=== PATIENT | female | born 1995 | race Caucasian/White ===

== ENCOUNTER 2016-07-14 18:47 | Emergency (ER) | payer SELFPAY ==
[2016-07-14 18:53] VITALS: BP 99/61; BMI 27.3
--- NOTE | 2016-07-14 20:42 | DR.GENAD ---
HPI - PCP Primary Care Physician: NFD - Complaint/Symptoms Chief Complaint Doctors Comments: Patient admits to rectal pain for two months. Sometimes she sees blood or unable to have BM due to the pain. Chief Complaint:: RECTAL PAIN SHARP NEEDLE LIKE PAIN AFTER HAVING SEX - Source History Provided: Patient - Mode of Arrival Mode of Arrival: Ambulatory - Timing Onset of Chief Complaint: 07/14/16 PMH - PMH Past Medical History: No Past Medical History: Depression Past Surgical History: Yes Surgical History: Tonsillectomy - Family History History of Family Medical Conditions: Yes Family Medical History: Diabetes Mellitus, Cancer - Social History Does any household member use tobacco: No Alcohol Use: None Do you use any recreational Drugs:: No Lives With: Family Lives Where: Home - infectious screening In the last 2 months have you had wt loss of >10#?: NO Have you had fever, night sweats or hemotysis?: No Have you traveled outside the country in the last 6 months?: No Isolation: Standard ROS - Review of Systems Constitutional: No Symptoms Reported Eyes: No Symptoms Reported ENTM: No Symptoms Reported Respiratoy: No Symptoms Reported Cardiovascular: No Symptoms Reported Gastrointestinal/Abdominal: No Symptoms Reported Genitourinary: No Symptoms Reported Neurological: No Symptoms Reported Musculoskeletal: No Symptoms Reported Integumentary: No Symptoms Reported Hematologic/Lymphatic: No Symptoms Reported Endocrine: No Symptoms Reported Psychiatric: No Symptoms Reported All Other Systems: Reviewed and Negative PE - Vital Signs Vitals: Temperature 98.5 F Pulse Rate 99 Respiratory Rate 18 Blood Pressure [Right Arm] 114/56 Blood Pressure [Left Arm] 116/59 Blood Pressure 99/61 O2 Sat by Pulse Oximetry 100 - General General Appearance: In No Apparent Distress - Head Head Exam: Normal Inspection, Atraumatic - Eyes Eye exam: Normal Appearance, PERRL, EOMI - ENT ENT Exam: Normal Exam TM/Canal Exam: Bilateral Normal Nose Exam: Normal Nose Exam, Sinus Tenderness Mouth Exam: Normal Inspection Throat Exam: Normal Inspection - Neck Neck Exam: Normal Inspection, Full ROM - Chest Chest Inspection: Normal Inspection, Symmetric Chest Wall Rise - Respiratory Respiratory Exam: Normal Lung Sounds Bilat Respiratory Exam: Bilateral Clear to Auscultation - Cardiovascular Cardiovascular Exam: Regular Rate, Normal Rhythm - Abdominal Exam Abdominal Exam: Normal Inspection, Normal Bowel Sounds Abdominal Tenderness: negative: RUQ, RLQ, LUQ, LLQ, Epigastrium, Suprapubic, Diffuse, Mild, Moderate, Severe, Other - Extremities Extremities Exam: Normal Inspection, Full ROM - Neurologic Neurological Exam: Alert, Oriented X3, CN II-XII Intact - Psychiatric Psychiatric Exam: Normal Affect, Normal Mood - Skin Skin Exam: Warm, Dry, Intact - Other Exam Other Exam: Rectal exam. Anal tag, rectum taught, no external hemorrhoid noted, finger inserted 1/3 of length encountered rectal spasm, pain, no fecal or blood - Diagnosis Discharge Problem: Proctitis - Discharge Plan Condition: Stable - Follow ups/Referrals Follow ups/Referrals: NFD,None [Primary Care Provider] - 3 days - Instructions
[2016-07-14] MEDS ORDERED: XYLOCAINE JELLY TOP ONE ×2 (20:49→20:50)
== END 2016-07-14 21:00 | disposition home or self-care (01) ==
LOC: ER 18:58
DX: K62.89 Other specified diseases of anus and rectum (principal)
CPT/HCPCS: 99282

== ENCOUNTER 2016-12-27 11:39 | Emergency (ER) | payer SELFPAY ==
[2016-12-27 11:44] VITALS: BP 129/69; BMI 24.3
--- NOTE | 2016-12-27 12:09 | DR.GENAD ---
HPI - PCP Primary Care Physician: nfd - Complaint/Symptoms Chief Complaint Doctors Comments: Patient presents complaint of sore throat, she admits to inhalaltion of ammonia from the work place last week. She denies cough, sneeze or headache. Chief Complaint:: patient stated she can hardly breath and her throat hurts. - Source History Provided: Patient - Mode of Arrival Mode of Arrival: Ambulatory - Timing Onset of Chief Complaint: 12/25/16 PMH - PMH Past Medical History: Yes Past Medical History: Depression Past Surgical History: Yes Surgical History: Tonsillectomy - Family History History of Family Medical Conditions: Yes Family Medical History: Diabetes Mellitus, Cancer - Social History Does patient currently use any type of tobacco product: Yes Have you used tobacco products in the last 12 months: Yes Type of Tobacco Use: Cigarettes How many years tobacco product used: 2 Does any household member use tobacco: No Alcohol Use: None Do you use any recreational Drugs:: No Lives With: Family Lives Where: Home - infectious screening In the last 2 months have you had wt loss of >10#?: NO Have you had fever, night sweats or hemotysis?: No Have you traveled outside the country in the last 6 months?: No Isolation: Standard ROS - Review of Systems Eyes: No Symptoms Reported ENTM: No Symptoms Reported Respiratoy: No Symptoms Reported Cardiovascular: No Symptoms Reported Gastrointestinal/Abdominal: No Symptoms Reported Genitourinary: No Symptoms Reported Neurological: No Symptoms Reported Musculoskeletal: No Symptoms Reported Integumentary: No Symptoms Reported Hematologic/Lymphatic: No Symptoms Reported Endocrine: No Symptoms Reported Psychiatric: No Symptoms Reported All Other Systems: Reviewed and Negative PE - Vital Signs Vitals: Temperature 98.3 F Pulse Rate 120 Respiratory Rate 16 Blood Pressure [Right Arm] 114/56 Blood Pressure [Left Arm] 116/59 Blood Pressure 129/69 O2 Sat by Pulse Oximetry 98 - General Limitations: No Limitations General Appearance: Alert, In No Apparent Distress - Head Head Exam: Normal Inspection, Atraumatic - Eyes Eye exam: Normal Appearance, PERRL, EOMI - ENT ENT Exam: Normal Exam External Ear Exam: Normal External Inspection TM/Canal Exam: Bilateral Normal Nose Exam: Normal Nose Exam Mouth Exam: Normal Inspection Throat Exam: Normal Inspection - Neck Neck Exam: Normal Inspection - Chest Chest Inspection: Normal Inspection - Respiratory Respiratory Exam: Normal Lung Sounds Bilat Respiratory Exam: Bilateral Clear to Auscultation - Cardiovascular Cardiovascular Exam: Regular Rate, Normal Rhythm - Abdominal Exam Abdominal Exam: Normal Inspection, Normal Bowel Sounds Abdominal Tenderness: RUQ, RLQ, LUQ, LLQ - Extremities Extremities Exam: Normal Inspection, Full ROM - Back Back Exam: Normal Inspection, Full ROM - Neurologic Neurological Exam: Alert, Oriented X3, CN II-XII Intact - Psychiatric Psychiatric Exam: Normal Affect, Normal Mood - Skin Skin Exam: Warm, Dry, Intact Course - Reevaluation 1st: Improved ROR - Labs Reviewed Laboratory Results Reviewed?: Yes (strep negative) Laboratory: Streptococcus Screen Negative (NEGATIVE) 12/27/16 12:11 - XRAY XRAY Interpreted by: Radiologist (Soft tissue lateral neck. Negative) - EKG [place]: Normal Rhythm: NSR Block: None Hypertrophy: None ST: Normal - Diagnosis Discharge Problem: Pharyngitis Qualifiers: Pharyngitis/tonsillitis etiology: unspecified etiology Qualified Code(s): J02.9 - Acute pharyngitis, unspecified - Discharge Plan Condition: Stable - Follow ups/Referrals Follow ups/Referrals: NFD,None [Primary Care Provider] - 3 days - Instructions
--- NOTE | 2016-12-27 12:53 | RAD ---
HISTORY: Neck pain Study: PA and lateral views of the neck. Comparison: None The prevertebral soft tissues are unremarkable in their appearance. No evidence for foreign body. T he airway is patent. The bony cervical spine is grossly unremarkable. IMPRESSION: 1. Grossly normal examination of the neck. Reported By:
== END 2016-12-27 13:33 | disposition home or self-care (01) ==
LOC: ER 11:46
DX: J02.9 Acute pharyngitis, unspecified (principal)
CPT/HCPCS: 70360; 87070; 87880; 99282; 99283

== ENCOUNTER 2017-06-05 17:38 | Emergency (ER) | payer SELFPAY ==
[2017-06-05 17:43] VITALS: BMI 23.3
--- NOTE | 2017-06-05 18:02 | DR.GENAD ---
HPI - PCP Primary Care Physician: ROBINSON - HPI Comment HPI Comment: PROBLEM HAVING BOWEL MOVEMENT. NO FEVER. - Complaint/Symptoms Chief Complaint Doctors Comments: RECTAL BLEEDING AND PAIN AND LOWER ABDOMINAL PAIN TIMES ONE WEEK. Chief Complaint:: PT C/O RECTAL BLEEDING, SWELLING, AND SEVERE RECTAL PAIN. PT STATES HER SYMPTOMS HAS BEEN GOING ON FOR A WEEK AND SHE HAS NOT BEEN ABLE TO HAVE A BM - Nurses notes reviewed Nurses Notes Review: Yes - Source History Provided: Patient - Mode of Arrival Mode of Arrival: Ambulatory - Timing Onset of Chief Complaint: 05/29/17 Came on: Suddenly - Duration Duration: Constant Duration: Days - Severity Severity: Moderate PMH - PMH Past Medical History: Yes Past Medical History: Depression Past Surgical History: Yes Surgical History: Tonsillectomy - Family History History of Family Medical Conditions: Yes Family Medical History: Diabetes Mellitus, Cancer - Social History Does patient currently use any type of tobacco product: Yes Have you used tobacco products in the last 12 months: Yes Type of Tobacco Use: Cigars Does any household member use tobacco: Yes Alcohol Use: None Do you use any recreational Drugs:: No Lives With: Family Lives Where: Home - infectious screening In the last 2 months have you had wt loss of >10#?: NO Have you had fever, night sweats or hemotysis?: No Have you traveled outside the country in the last 6 months?: No Isolation: Standard ROS - Review of Systems Constitutional: No Symptoms Reported Eyes: No Symptoms Reported ENTM: No Symptoms Reported Respiratoy: No Symptoms Reported Cardiovascular: No Symptoms Reported Gastrointestinal/Abdominal: Abdominal Pain Genitourinary: Other (RECTAL BEEDING.) Neurological: No Symptoms Reported Musculoskeletal: No Symptoms Reported Integumentary: No Symptoms Reported Hematologic/Lymphatic: No Symptoms Reported Endocrine: No Symptoms Reported All Other Systems: Reviewed and Negative PE - Vital Signs Vitals: Temperature 99.4 F Pulse Rate 94 Respiratory Rate 20 Blood Pressure [Right Arm] 114/56 Blood Pressure [Left Arm] 116/59 Blood Pressure 118/68 O2 Sat by Pulse Oximetry 99 - General Limitations: No Limitations General Appearance: Alert - Head Head Exam: Normal Inspection - Eyes Eye exam: Normal Appearance - ENT ENT Exam: Normal External Ear Exam - Neck Neck Exam: Trachea Midline - Chest Chest Inspection: Symmetric Chest Wall Rise - Respiratory Respiratory Exam: Normal Lung Sounds Bilat Respiratory Exam: Bilateral Clear to Auscultation - Cardiovascular Cardiovascular Exam: Regular Rate, Normal Rhythm, Normal Heart Sounds - Abdominal Exam Abdominal Exam: Normal Bowel Sounds, Soft. negative: Tenderness Abdominal Tenderness: Other (RECTAL EXAM, SMALL EXTERNAL HEMORRHOID WITH SMALL SKIN TEREAR THAT IE NOT ACTIVELY BLEEDING.) - Extremities Extremities Exam: Normal Inspection - Back Back Exam: Normal Inspection - Neurologic Neurological Exam: Alert, Oriented X3 - Psychiatric Psychiatric Exam: Anxious - Skin Skin Exam: Normal Color MDM - Differential Diagnosis Differential Diagnosis: HEMORRHOID, SKIN TEAR, PUD Course - Treatment Treatment: SEE ORDERS. - Education/Counseling Education/Counseling: Patient, Education Educated On: Diagnosis, Needs for Follow Up ROR - Labs Reviewed Laboratory Results Reviewed?: Yes Result Diagrams: 06/05/17 18:16 06/05/17 18:16 Laboratory: WBC 10.4 X10^3/uL (3.6-10.0) H 06/05/17 18:16 RBC 4.26 X10^6/uL (3.5-5.4) 06/05/17 18:16 Hgb 13.6 g/dL (12.0-16.0) 06/05/17 18:16 Hct 38.9 % (36.0-47.0) 06/05/17 18:16 MCV 91.3 fL (80.0-100.0) 06/05/17 18:16 MCH 32.0 pg (27.0-34.0) 06/05/17 18:16 MCHC 35.1 g/dL (33.0-35.0) H 06/05/17 18:16 RDW 13.5 % (11.6-16.5) 06/05/17 18:16 Plt Count 236 X10^3/uL (150.0-450.0) 06/05/17 18:16 MPV 7.2 fL (7.4-11.0) L 06/05/17 18:16 Neut % 56.2 % (42.0-75.0) 06/05/17 18:16 Lymph % 37.8 % (21.0-51.0) 06/05/17 18:16 [place] % 5.0 % (0.0-13.0) 06/05/17 18:16 Eos % 0.4 % (0.9-2.9) L 03/02/18 18:16 Baso % 0.6 % (0.2-1.0) 06/05/17 18:16 Neut # 5.9 x10^3/uL (2.2-4.8) H 06/05/17 18:16 Lymph # 3.9 X10^3/uL (1.3-2.9) H 06/05/17 18:16 [place] # 0.5 x10^3/uL (0.3-0.8) 06/05/17 18:16 Eos # 0.0 x10^3/uL (0.0-0.2) 06/05/17 18:16 Baso # 0.1 X10^3/uL (0.0-0.1) 06/05/17 18:16 Absolute Nucleated RBC 0.1 /100WBC 06/05/17 18:16 INR Target Range - 06/05/17 18:16 INR 1.02 (0.8-1.3) 06/05/17 18:16 PTT 33.7 SECONDS (22.9-36.5) 06/05/17 18:16 PTT Comment - 06/05/17 18:16 Sodium 140 mmol/L (136-145) 06/05/17 18:16 Corrected Sodium TNP 06/05/17 18:16 Potassium 4.1 mmol/L (3.5-5.1) 06/05/17 18:16 Chloride 104 mmol/L (98-107) 06/05/17 18:16 Carbon Dioxide 25.2 mmol/L (21-32) 06/05/17 18:16 BUN 11 mg/dL (7-18) 06/05/17 18:16 Creatinine 0.91 mg/dL (0.55-1.02) 06/05/17 18:16 Est GFR (MDRD) Af Amer > 60 (>60) 06/05/17 18:16 Est GFR (MDRD) Non-Af > 60 (>60) 06/05/17 18:16 Glucose 85 mg/dL (65-99) 06/05/17 18:16 Calcium 8.8 mg/dL (8.5-10.1) 06/05/17 18:16 Corrected Calcium TNP 06/05/17 18:16 Total Bilirubin 0.30 mg/dL (0.2-1.0) 06/05/17 18:16 AST 15 Units/L (15-37) 06/05/17 18:16 ALT 19 Units/L (12-78) 06/05/17 18:16 Alkaline Phosphatase 54 Units/L (46-116) 06/05/17 18:16 Total Protein 7.2 g/dL (6.4-8.2) 06/05/17 18:16 Albumin 4.2 g/dL (3.4-5.0) 06/05/17 18:16 Globulin 3.0 g/dL (2.5-4.5) 06/05/17 18:16 Albumin/Globulin Ratio 1.4 Ratio (1.1-2.1) 06/05/17 18:16 HCG, Qual Negative <10 mIU/mL 06/05/17 18:16 - Diagnosis Discharge Problem: Hemorrhage, Rectal bleeding - Discharge Plan Condition: Stable Prescriptions: Hydrocortisone Supp 25 mg [Anucort-Hc Supp] 25 mg RECTAL BID PRN #24 supp PRN Reason: Hemmorhoid Itching/Discomfort Ranitidine HCl [ZANTAC TAB 150 MG *] 150 mg PO BID #60 tab - Follow ups/Referrals Follow ups/Referrals: NFD,None [Primary Care Provider] - 3 days PIERO PLASCENCIA [STAFF PHYSICIAN] - 3 days - Instructions Instructions: Hemorrhoids, [id number], Hematoma Additional Instructions: RETURN TO ED IF WORSE.
[2017-06-05 18:33] LABS: BASOPHILS # (AUTO) 0.1 X10^3/uL (0.0-0.1); BASOPHILS % (AUTO) 0.6 % (0.2-1.0); EOSINOPHILS % (AUTO) 0.4 % (0.9-2.9); HEMATOCRIT 38.9 % (36.0-47.0); HEMOGLOBIN 13.6 g/dL (12.0-16.0); LYMPHOCYTES # (AUTO) 3.9 X10^3/uL (1.3-2.9); LYMPHOCYTES % (AUTO) 37.8 % (21.0-51.0); MEAN CORPUSCULAR HGB CONC 35.1 g/dL (33.0-35.0); MEAN CORPUSCULAR VOLUME 91.3 fL (80.0-100.0); MEAN PLATELET VOLUME 7.2 fL (7.4-11.0); MONOCYTES # (AUTO) 0.5 x10^3/uL (0.3-0.8); NEUTROPHILS # (AUTO) 5.9 x10^3/uL (2.2-4.8); NEUTROPHILS % (AUTO) 56.2 % (42.0-75.0); PLATELET COUNT 236 X10^3/uL (150.0-450.0); RED BLOOD COUNT 4.26 X10^6/uL (3.5-5.4); RED CELL DISTRIBUTION WIDTH 13.5 % (11.6-16.5); WHITE BLOOD COUNT 10.4 X10^3/uL (3.6-10.0)
[2017-06-05 18:51] LABS: ALANINE AMINOTRANSFERASE 19 Units/L (12-78); ALBUMIN 4.2 g/dL (3.4-5.0); ALKALINE PHOSPHATASE 54 Units/L (46-116); ASPARTATE AMINO TRANSFERASE 15 Units/L (15-37); BLOOD UREA NITROGEN 11 mg/dL (7-18); CALCIUM 8.8 mg/dL (8.5-10.1); CARBON DIOXIDE 25.2 mmol/L (21-32); CHLORIDE 104 mmol/L (98-107); CREATININE 0.91 mg/dL (0.55-1.02); SODIUM 140 mmol/L (136-145); TOTAL PROTEIN 7.2 g/dL (6.4-8.2); eGFR BLACK RACES > 60 (>60); eGFR NON BLACK RACES > 60 (>60)
[2017-06-05 19:20] LABS: SERUM PREGNANCY TEST, QUAL NEGATIVE <10 mIU/mL
[2017-06-05 20:03] VITALS: BP 107/62
--- NOTE | 2017-06-05 20:04 | RAD ---
Acute abdominal series, three views Indication: Abdominal pain Comparison: None Findings: The heart size is normal. No focal consolidation, significant effusion or pneumothorax is i dentified. Large stool burden is present throughout the colon, suggestive for constipation. The visualized bowel gas pattern is otherwise nonobstructive. No free air or pneumatosis is identified. No pathologic tu cifications are seen. Imaged osseous structures are intact. Impression: No acute chest process. Constipation. Otherwise, no acute abdominal abnormality. Reported By:
== END 2017-06-05 20:03 | disposition home or self-care (01) ==
LOC: ER 17:48
DX: K62.5 Hemorrhage of anus and rectum (principal); K59.09 Other constipation
CPT/HCPCS: 36415; 74022; 80053; 84703; 85025; 85610; 85730; 99282; 99283